=== PATIENT | male | born 1965 | race Caucasian/White ===

== ENCOUNTER 2021-04-07 06:19 | Inpatient (IN) | payer OTHER ==
[2021-04-07] MEDS ORDERED: dilTIAZem HCL 50 MG/10 ML - 10 ML VIAL IVPUSH ONE ×2 (06:38→10:17)
[2021-04-07] MEDS ORDERED: LACTATED RINGERS SOLUTION 1000 ML INFUS.BAG IV ONE ×2 (06:41→07:56)
[2021-04-07] MEDS ORDERED: dilTIAZem HCL 125 MG/25 ML - 25 ML VIAL ONE (06:45)
[2021-04-07 07:02] LABS: HEMATOCRIT 44.2 % (35.4-49); HEMOGLOBIN 15.2 GM/dL (11.7-16.9); MCH 29.6 pg (25.7-33.7); MCHC 34.3 g/dl (32.0-35.9); MEAN CELL VOLUME 86.3 fl (80-96); MEAN PLT VOLUME 9.6 fl (7.5-11.1); PLATELET COUNT 269 10^3/uL (134-434); RBC 5.12 M/mm3 (4.00-5.60); RDW 14.1 % (11.9-15.9); WHITE BLOOD COUNT 18.8 K/mm3 (4.0-10.0)
[2021-04-07] MEDS ORDERED: PIPERACILLIN/TAZOB 3.375 GM 3.375 GM in DEXTROSE 5%-WATER - 50 ML IVPB ONE (07:11)
[2021-04-07] MEDS ORDERED: VANCOMYCIN 1 GM in D5W (PRE-DOCKED) 1,000 MG/250 ML IVPB ONE (07:11)
[2021-04-07 07:12] LABS: ACTIVATED PTT 28.1 SECONDS (25.2-36.5)
[2021-04-07] MEDS ORDERED: VANCOMYCIN 1 GRAM (PRE-DOCKED) 1,000 MG/250 ML BAG IVPB ONE (07:14)
[2021-04-07] MEDS ORDERED: PIPERACILLIN/TAZOB 3.375 GM 3.375 GM/50 ML BAG IVPB ONE ×3 (07:14→19:02)
[2021-04-07 07:21] LABS: CHLORIDE 92 mmol/L (98-107); SODIUM 128 mmol/L (136-145)
[2021-04-07 07:23] LABS: CALCIUM 7.7 mg/dL (8.5-10.1)
[2021-04-07 07:24] LABS: ALBUMIN 2.4 g/dl (3.4-5.0); ANION GAP 15 MMOL/L (8-16); BLOOD UREA NITROGEN 24.6 mg/dL (7-18); CO2 21 mmol/L (21-32); GLUCOSE,RANDOM 269 mg/dL (74-106); MAGNESIUM 2.6 mg/dL (1.8-2.4)
[2021-04-07 07:27] LABS: CREATININE 1.9 mg/dL (0.55-1.3); SGOT/AST 43 U/L (15-37); SGPT/ALT 73 U/L (13-61)
[2021-04-07 07:28] LABS: BILIRUBIN,TOTAL 2.4 mg/dL (0.2-1); TOT PROT 6.5 g/dl (6.4-8.2)
[2021-04-07 07:30] LABS: ALK PHOS 180 U/L (45-117)
[2021-04-07 07:33] LABS: LACTIC ACID 3.3 mmol/L (0.4-2.0)
[2021-04-07 08:17] LABS: PH,URINE 5.5 (5.0-8.0); URINE APPEARANCE TURBID; URINE BILIRUBIN NEGATIVE (NEGATIVE); URINE COLOR YELLOW; URINE GLUCOSE (UA) NEGATIVE (NEGATIVE); URINE KETONE NEGATIVE (NEGATIVE); URINE LEUK ESTERASE 3+ (NEGATIVE); URINE NITRITE NEGATIVE (NEGATIVE); URINE PROTEIN 1+ (NEGATIVE); URINE UROBILINOGEN 0.2 mg/dL (0.2-1.0)
[2021-04-07 08:20] LABS: INR 1.1 (0.83-1.09); PROTHROMBIN TIME (PATIENT) 13.5 SEC (9.7-13.0)
[2021-04-07 08:21] LABS: EPI CELLS 2.6 /uL (0-25.1); URINE BACTERIA 3101.6 /uL (0-1359); URINE RBC 154.3 /uL (0-23.9)
[2021-04-07 10:17] LABS: ANISOCYTOSIS 0; MACROCYTOSIS 0; PLATELET ESTIMATE NORMAL
[2021-04-07] MEDS ORDERED: dilTIAZem HCL 50 MG/10 ML - 10 ML VIAL ONE (10:21)
[2021-04-07] MEDS ORDERED: METOPROLOL TARTRATE 5 MG/5 ML VIAL IVPUSH ONE (11:14)
[2021-04-07] MEDS ORDERED: METOPROLOL TARTRATE 5 MG/5 ML VIAL ONE (11:22)
[2021-04-07] MEDS ORDERED: DIGOXIN IMMUNE FAB 40 MG/4 ML VIAL IVPB ONE ×2 (11:48→11:56)
[2021-04-07] MEDS ORDERED: DIGOXIN 0.5 MG/2 ML AMPUL IVPUSH ONE (12:38)
[2021-04-07] MEDS ORDERED: DIGOXIN 0.5 MG/2 ML AMPUL ONE (12:40)
[2021-04-07] MEDS ORDERED: PIPERACILLIN/TAZOB 3.375 GM 3.375 GM in DEXTROSE 5%-WATER - 50 ML IVPB SCH ×2 (13:15→13:30)
[2021-04-07] MEDS ORDERED: DILTIAZEM INJECTION 125 MG in SODIUM CHLORIDE 100 ML IVPB SCH ×2 (13:30→13:32)
[2021-04-07] MEDS ORDERED: HEPARIN NA (PORCINE) 5,000 UNITS/ML 1ML VIAL ONE ×2 (13:44→18:46)
[2021-04-07] MEDS ORDERED: SODIUM CHLORIDE 1,000 ML IV SCH (13:45)
[2021-04-07] MEDS ORDERED: LACTATED RINGERS SOLUTION 1,000 ML/1,000 ML INFUS.BAG IV SCH (13:45)
[2021-04-07] MEDS ORDERED: HEPARIN NA (PORCINE) 5,000 UNITS/ML 1ML VIAL SQ SCH (14:00)
[2021-04-07] MEDS: PIPERACILLIN/TAZOB 3.375 GM 3.375 GM in DEXTROSE 5%-WATER - 50 ML IVPB SCH ×2 (14:12→19:07)
[2021-04-07] MEDS ORDERED: HEPARIN NA (PORCINE) 5,000 UNITS/ML 1ML VIAL IVPUSH PRN (16:54)
[2021-04-07] MEDS ORDERED: HEPARIN - 25,000 UNIT in SODIUM CHLORIDE 495 ML IV SCH (17:00)
[2021-04-07 17:32] LABS: CREATININE, URINE RANDOM 46.7 mg/dL (30-150)
[2021-04-07] MEDS: INSULIN SLIDING SCALE (NOVOLOG) 1 VIAL SQ SCH ×2 (17:51→23:51)
[2021-04-07 18:12] LABS: VENOUS BASE EXCESS 2.4 mmol/L (-2-2); VENOUS O2 SATURATION 88.1 % (70-80); VENOUS PCO2 30.4 mmHg (38-52); VENOUS PH 7.519 (7.310-7.410)
[2021-04-07] MEDS ORDERED: ESMOLOL 2500 MG/250 ML 2,500,000 MCG/250 ML INFUS.BAG IVPB ONE (19:11)
[2021-04-07] MEDS: ESMOLOL 2500 MG/250 ML 2,500,000 MCG/250 ML INFUS.BAG IVPB SCH ×2 (19:29→22:18)
[2021-04-07] MEDS ORDERED: LACTATED RINGERS SOLUTION 1,000 ML/1,000 ML INFUS.BAG IV STA (20:07)
[2021-04-07 20:50] LABS: OPIATES, URI NEGATIVE (NEGATIVE); PHENCYCLIDINE,URINE NEGATIVE (NEGATIVE)
[2021-04-07 20:51] LABS: METHADONE, UR NEGATIVE (NEGATIVE); URINE BARBITURATES NEGATIVE (NEGATIVE); URINE BENZODIAZEPINES NEGATIVE (NEGATIVE)
[2021-04-07 20:52] LABS: COCAINE, UR NEGATIVE (NEGATIVE); URINE AMPHETAMINES NEGATIVE (NEGATIVE)
[2021-04-07] MEDS: CHLORHEXIDINE GLUCONATE 4% CLEANSER FOR DECOLONIZATION TP SCH (23:51)
[2021-04-07] MEDS: MUPIROCIN 2% TOPICAL OINTMENT FOR DECOLONIZATION NS SCH (23:51)
[2021-04-08 00:42] VITALS: BMI 39.2
[2021-04-08] MEDS: ESMOLOL 2500 MG/250 ML 2,500,000 MCG/250 ML INFUS.BAG IVPB SCH ×2 (02:00→06:00)
[2021-04-08] MEDS ORDERED: PIPERACILLIN/TAZOBACTAM 3.375 GM VIAL IVPB ONE ×3 (02:57→16:52)
[2021-04-08] MEDS ORDERED: DEXTROSE 5%-WATER - 50 ML IVPB ONE ×3 (02:58→16:53)
[2021-04-08] MEDS: HEPARIN NA (PORCINE) 5,000 UNITS/ML 1ML VIAL IVPUSH PRN ×2 (03:02→10:36)
[2021-04-08] MEDS: PIPERACILLIN/TAZOB 3.375 GM 3.375 GM in DEXTROSE 5%-WATER - 50 ML IVPB SCH ×3 (03:03→17:00)
[2021-04-08 06:45] LABS: HEMATOCRIT 39.3 % (35.4-49); HEMOGLOBIN 13.5 GM/dL (11.7-16.9); MCHC 34.3 g/dl (32.0-35.9); MEAN CELL VOLUME 87.7 fl (80-96); MEAN PLT VOLUME 9.3 fl (7.5-11.1); PLATELET COUNT 275 10^3/uL (134-434); RBC 4.48 M/mm3 (4.00-5.60); RDW 14.4 % (11.9-15.9); WHITE BLOOD COUNT 13.5 K/mm3 (4.0-10.0)
[2021-04-08] MEDS: INSULIN SLIDING SCALE (NOVOLOG) 1 VIAL SQ SCH ×4 (06:49→21:50)
[2021-04-08 06:52] LABS: CALCIUM 7.1 mg/dL (8.5-10.1)
[2021-04-08 06:53] LABS: BLOOD UREA NITROGEN 24.2 mg/dL (7-18); MAGNESIUM 2.7 mg/dL (1.8-2.4)
[2021-04-08 06:56] LABS: CREATININE 1.6 mg/dL (0.55-1.3); PHOSPHOROUS 4.3 mg/dL (2.5-4.9)
[2021-04-08 06:57] LABS: BILIRUBIN,TOTAL 1.4 mg/dL (0.2-1)
[2021-04-08 08:58] LABS: ANISOCYTOSIS 0; MACROCYTOSIS 0; PLATELET ESTIMATE NORMAL; TARGET CELLS 1+
[2021-04-08] MEDS: METOPROLOL TARTRATE 25 MG TABLET (FP) PO SCH ×2 (11:30→21:50)
[2021-04-08] MEDS: MUPIROCIN 2% TOPICAL OINTMENT FOR DECOLONIZATION NS SCH ×2 (11:30→21:49)
[2021-04-08] MEDS: AMIODARONE HCL 200 MG TABLET PO SCH ×2 (14:41→21:49)
[2021-04-08] MEDS: SODIUM CHLORIDE 0.45% 1,000 ML IV SCH (14:41)
[2021-04-08] MEDS: HEPARIN NA (PORCINE) 5,000 UNITS/ML 1ML VIAL SQ SCH ×2 (15:15→21:49)
[2021-04-08] MEDS ORDERED: amLODIPine BESYLATE 5 MG TABLET (FP) PO ONE (18:48)
[2021-04-08] MEDS: CHLORHEXIDINE GLUCONATE 4% CLEANSER FOR DECOLONIZATION TP SCH (21:49)
[2021-04-09] MEDS ORDERED: DEXTROSE 5%-WATER - 50 ML IVPB ONE ×3 (00:23→18:39)
[2021-04-09] MEDS ORDERED: PIPERACILLIN/TAZOBACTAM 3.375 GM VIAL IVPB ONE ×3 (00:23→18:39)
[2021-04-09] MEDS: PIPERACILLIN/TAZOB 3.375 GM 3.375 GM in DEXTROSE 5%-WATER - 50 ML IVPB SCH ×3 (01:10→18:52)
[2021-04-09] MEDS: HEPARIN NA (PORCINE) 5,000 UNITS/ML 1ML VIAL SQ SCH ×3 (05:12→21:54)
[2021-04-09] MEDS: INSULIN SLIDING SCALE (NOVOLOG) 1 VIAL SQ SCH ×4 (06:18→21:54)
[2021-04-09 06:45] LABS: HEMATOCRIT 39.4 % (35.4-49); HEMOGLOBIN 13.5 GM/dL (11.7-16.9); MCH 30.4 pg (25.7-33.7); MCHC 34.2 g/dl (32.0-35.9); MEAN PLT VOLUME 9.1 fl (7.5-11.1); PLATELET COUNT 339 10^3/uL (134-434); RBC 4.43 M/mm3 (4.00-5.60); RDW 14.4 % (11.9-15.9); WHITE BLOOD COUNT 13.5 K/mm3 (4.0-10.0)
[2021-04-09 06:47] LABS: HEMATOCRIT 39.4 % (35.4-49); HEMOGLOBIN 13.4 GM/dL (11.7-16.9); MCH 30.4 pg (25.7-33.7); MCHC 33.9 g/dl (32.0-35.9); MEAN CELL VOLUME 89.7 fl (80-96); MEAN PLT VOLUME 9.5 fl (7.5-11.1); PLATELET COUNT 343 10^3/uL (134-434); RDW 14.5 % (11.9-15.9); WHITE BLOOD COUNT 14.1 K/mm3 (4.0-10.0)
[2021-04-09 07:08] LABS: CALCIUM 7.4 mg/dL (8.5-10.1)
[2021-04-09 07:09] LABS: ALBUMIN 2.2 g/dl (3.4-5.0); BLOOD UREA NITROGEN 21.8 mg/dL (7-18); MAGNESIUM 2.9 mg/dL (1.8-2.4)
[2021-04-09 07:12] LABS: CREATININE 1.3 mg/dL (0.55-1.3); PHOSPHOROUS 3.9 mg/dL (2.5-4.9)
[2021-04-09 07:13] LABS: BILIRUBIN,TOTAL 1.2 mg/dL (0.2-1); TOT PROT 6.5 g/dl (6.4-8.2)
[2021-04-09] MEDS: METOPROLOL TARTRATE 25 MG TABLET (FP) PO SCH ×2 (09:06→21:54)
[2021-04-09] MEDS: AMIODARONE HCL 200 MG TABLET PO SCH ×2 (09:06→21:53)
[2021-04-09] MEDS: amLODIPine BESYLATE 5 MG TABLET (FP) PO SCH (09:07)
[2021-04-09] MEDS: MUPIROCIN 2% TOPICAL OINTMENT FOR DECOLONIZATION NS SCH ×2 (09:18→21:53)
[2021-04-09 09:33] LABS: ANISOCYTOSIS 0; MACROCYTOSIS 0; PLATELET ESTIMATE NORMAL
[2021-04-09] MEDS: SODIUM CHLORIDE 0.45% 1,000 ML IV SCH (18:54)
[2021-04-09] MEDS: CHLORHEXIDINE GLUCONATE 4% CLEANSER FOR DECOLONIZATION TP SCH (21:54)
[2021-04-10] MEDS ORDERED: DEXTROSE 5%-WATER - 50 ML IVPB ONE ×3 (01:11→17:35)
[2021-04-10] MEDS ORDERED: PIPERACILLIN/TAZOBACTAM 3.375 GM VIAL IVPB ONE ×3 (01:11→17:35)
[2021-04-10] MEDS: PIPERACILLIN/TAZOB 3.375 GM 3.375 GM in DEXTROSE 5%-WATER - 50 ML IVPB SCH ×3 (01:14→17:45)
[2021-04-10] MEDS: INSULIN SLIDING SCALE (NOVOLOG) 1 VIAL SQ SCH ×4 (06:27→21:17)
[2021-04-10] MEDS: SODIUM CHLORIDE 0.45% 1,000 ML IV SCH (08:32)
[2021-04-10 08:50] LABS: HEMATOCRIT 38.4 % (35.4-49); HEMOGLOBIN 13.2 GM/dL (11.7-16.9); MCH 30.2 pg (25.7-33.7); MCHC 34.5 g/dl (32.0-35.9); MEAN CELL VOLUME 87.6 fl (80-96); MEAN PLT VOLUME 8.2 fl (7.5-11.1); PLATELET COUNT 389 10^3/uL (134-434); RBC 4.39 M/mm3 (4.00-5.60); RDW 14.4 % (11.9-15.9); WHITE BLOOD COUNT 12.9 K/mm3 (4.0-10.0)
[2021-04-10 09:06] LABS: ALBUMIN 2.4 g/dl (3.4-5.0); CALCIUM 7.8 mg/dL (8.5-10.1)
[2021-04-10 09:07] LABS: BLOOD UREA NITROGEN 17.8 mg/dL (7-18); MAGNESIUM 2.6 mg/dL (1.8-2.4)
[2021-04-10 09:09] LABS: PHOSPHOROUS 4.2 mg/dL (2.5-4.9)
[2021-04-10 09:10] LABS: CREATININE 1.4 mg/dL (0.55-1.3)
[2021-04-10 09:11] LABS: BILIRUBIN,TOTAL 0.9 mg/dL (0.2-1); TOT PROT 6.7 g/dl (6.4-8.2)
[2021-04-10] MEDS: amLODIPine BESYLATE 5 MG TABLET (FP) PO SCH (10:14)
[2021-04-10] MEDS: METOPROLOL TARTRATE 25 MG TABLET (FP) PO SCH ×2 (10:14→21:17)
[2021-04-10] MEDS: AMIODARONE HCL 200 MG TABLET PO SCH ×2 (10:14→21:17)
[2021-04-10] MEDS ORDERED: IOHEXOL 300 MG/ML INFUS..BTL IV ONE (10:15)
[2021-04-10] MEDS ORDERED: MIDAZOLAM HCL 2 MG/2 ML SINGLE DOSE VIAL ONE ×2 (10:28→10:54)
[2021-04-10] MEDS ORDERED: PROPOFOL 20 ML ONE (10:28)
[2021-04-10] MEDS: MUPIROCIN 2% TOPICAL OINTMENT FOR DECOLONIZATION NS SCH (10:30)
[2021-04-10] MEDS ORDERED: ONDANSETRON 4 MG/2 ML VIAL IVPUSH PRN ×2 (11:43→12:14)
[2021-04-10] MEDS ORDERED: LACTATED RINGERS SOLUTION 1,000 ML IV SCH ×3 (11:45→13:30)
[2021-04-10] MEDS ORDERED: SODIUM CHLORIDE 0.45% 1,000 ML IV SCH ×2 (12:02→12:14)
[2021-04-10] MEDS ORDERED: HEPARIN NA (PORCINE) 5,000 UNITS/ML 1ML VIAL SQ SCH ×2 (14:00)
[2021-04-10] MEDS ORDERED: INSULIN SLIDING SCALE (NOVOLOG) 1 VIAL SQ SCH (16:30)
[2021-04-10] MEDS ORDERED: HEPARIN NA (PORCINE) 5,000 UNITS/ML 1ML VIAL IVPUSH PRN ×2 (17:21)
[2021-04-10] MEDS ORDERED: PIPERACILLIN/TAZOB 3.375 GM 3.375 GM in DEXTROSE 5%-WATER - 50 ML IVPB SCH (18:00)
[2021-04-10] MEDS: HEPARIN - 25,000 UNIT in SODIUM CHLORIDE 495 ML IV SCH (18:13)
[2021-04-10] MEDS ORDERED: INSULIN (NOVOLOG) ASPART 100 UNITS/ML 10ML VIAL ONE (21:10)
[2021-04-10] MEDS ORDERED: METOPROLOL TARTRATE 25 MG TABLET (FP) PO SCH (22:00)
[2021-04-10] MEDS ORDERED: AMIODARONE HCL 200 MG TABLET PO SCH ×2 (22:00)
[2021-04-11] MEDS ORDERED: PIPERACILLIN/TAZOBACTAM 3.375 GM VIAL IVPB ONE ×3 (02:03→16:52)
[2021-04-11] MEDS ORDERED: DEXTROSE 5%-WATER - 50 ML IVPB ONE ×3 (02:03→16:52)
[2021-04-11] MEDS: PIPERACILLIN/TAZOB 3.375 GM 3.375 GM in DEXTROSE 5%-WATER - 50 ML IVPB SCH ×3 (02:15→17:24)
[2021-04-11] MEDS ORDERED: ACETAMINOPHEN 1000 MG/100 ML VIAL (NON FORMULARY) IVPB ONE (02:18)
[2021-04-11] MEDS: INSULIN SLIDING SCALE (NOVOLOG) 1 VIAL SQ SCH ×4 (06:25→22:35)
[2021-04-11 09:27] LABS: HEMATOCRIT 39.9 % (35.4-49); HEMOGLOBIN 13.7 GM/dL (11.7-16.9); MCH 30.3 pg (25.7-33.7); MCHC 34.3 g/dl (32.0-35.9); MEAN CELL VOLUME 88.4 fl (80-96); MEAN PLT VOLUME 8.5 fl (7.5-11.1); PLATELET COUNT 403 10^3/uL (134-434); RBC 4.51 M/mm3 (4.00-5.60); RDW 14.4 % (11.9-15.9); WHITE BLOOD COUNT 12.4 K/mm3 (4.0-10.0)
[2021-04-11] MEDS: amLODIPine BESYLATE 5 MG TABLET (FP) PO SCH (09:50)
[2021-04-11] MEDS: HEPARIN - 25,000 UNIT in SODIUM CHLORIDE 495 ML IV SCH (09:50)
[2021-04-11] MEDS: METOPROLOL TARTRATE 25 MG TABLET (FP) PO SCH ×2 (09:50→22:27)
[2021-04-11] MEDS: AMIODARONE HCL 200 MG TABLET PO SCH ×2 (09:50→22:27)
[2021-04-11 11:03] LABS: BLOOD UREA NITROGEN 14.3 mg/dL (7-18); CALCIUM 7.8 mg/dL (8.5-10.1); CHLORIDE 105 mmol/L (98-107); CO2 28 mmol/L (21-32); CREATININE 1.3 mg/dL (0.55-1.3); GLUCOSE,RANDOM 96 mg/dL (74-106); SODIUM 139 mmol/L (136-145)
[2021-04-11 11:04] LABS: ALBUMIN 2.4 g/dl (3.4-5.0); ALK PHOS 141 U/L (45-117); SGOT/AST 31 U/L (15-37); SGPT/ALT 81 U/L (13-61); TOT PROT 6.7 g/dl (6.4-8.2)
[2021-04-11] MEDS: HEPARIN NA (PORCINE) 5,000 UNITS/ML 1ML VIAL SQ SCH (22:29)
[2021-04-12] MEDS ORDERED: PIPERACILLIN/TAZOBACTAM 3.375 GM VIAL IVPB ONE ×3 (03:09→16:19)
[2021-04-12] MEDS ORDERED: DEXTROSE 5%-WATER - 50 ML IVPB ONE ×3 (03:10→16:19)
[2021-04-12] MEDS: PIPERACILLIN/TAZOB 3.375 GM 3.375 GM in DEXTROSE 5%-WATER - 50 ML IVPB SCH ×3 (03:13→17:12)
[2021-04-12] MEDS: HEPARIN NA (PORCINE) 5,000 UNITS/ML 1ML VIAL SQ SCH ×3 (06:44→22:52)
[2021-04-12] MEDS: INSULIN SLIDING SCALE (NOVOLOG) 1 VIAL SQ SCH ×4 (06:45→22:53)
[2021-04-12 07:05] LABS: HEMATOCRIT 40.8 % (35.4-49); MCH 30.4 pg (25.7-33.7); MCHC 34.2 g/dl (32.0-35.9); MEAN CELL VOLUME 88.9 fl (80-96); RBC 4.59 M/mm3 (4.00-5.60); WHITE BLOOD COUNT 13.1 K/mm3 (4.0-10.0)
[2021-04-12 07:07] LABS: RDW 14.5 % (11.9-15.9)
[2021-04-12 07:08] LABS: MEAN PLT VOLUME 8.1 fl (7.5-11.1); PLATELET COUNT 396 10^3/uL (134-434)
[2021-04-12] MEDS ORDERED: PT OWN MED DRAWER 7, Y5N ONE (09:07)
[2021-04-12] MEDS: amLODIPine BESYLATE 5 MG TABLET (FP) PO SCH (10:10)
[2021-04-12] MEDS: AMIODARONE HCL 200 MG TABLET PO SCH ×2 (10:10→22:52)
[2021-04-12] MEDS: METOPROLOL TARTRATE 25 MG TABLET (FP) PO SCH ×2 (10:10→22:52)
[2021-04-13] MEDS ORDERED: PIPERACILLIN/TAZOBACTAM 3.375 GM VIAL IVPB ONE ×3 (02:04→17:36)
[2021-04-13] MEDS ORDERED: DEXTROSE 5%-WATER - 50 ML IVPB ONE ×3 (02:04→17:36)
[2021-04-13] MEDS: PIPERACILLIN/TAZOB 3.375 GM 3.375 GM in DEXTROSE 5%-WATER - 50 ML IVPB SCH ×3 (02:48→18:20)
[2021-04-13] MEDS: HEPARIN NA (PORCINE) 5,000 UNITS/ML 1ML VIAL SQ SCH (06:23)
[2021-04-13] MEDS: INSULIN SLIDING SCALE (NOVOLOG) 1 VIAL SQ SCH ×3 (06:24→21:01)
[2021-04-13 07:49] LABS: HEMATOCRIT 43.7 % (35.4-49); HEMOGLOBIN 14.9 GM/dL (11.7-16.9); MCH 30.2 pg (25.7-33.7); MEAN CELL VOLUME 88.9 fl (80-96); MEAN PLT VOLUME 8.6 fl (7.5-11.1); PLATELET COUNT 447 10^3/uL (134-434); RBC 4.92 M/mm3 (4.00-5.60); RDW 14.6 % (11.9-15.9); WHITE BLOOD COUNT 15.3 K/mm3 (4.0-10.0)
[2021-04-13] MEDS ORDERED: MAGNESIUM SULF 50% (8.12 MEQ/2 ML-1 GM VIAL) IVPB ONE (10:22)
[2021-04-13] MEDS: amLODIPine BESYLATE 5 MG TABLET (FP) PO SCH (10:34)
[2021-04-13] MEDS: AMIODARONE HCL 200 MG TABLET PO SCH ×2 (10:34→22:32)
[2021-04-13] MEDS: METOPROLOL TARTRATE 25 MG TABLET (FP) PO SCH ×2 (10:34→22:40)
[2021-04-13] MEDS ORDERED: fentaNYL CITRATE 250 MCG/5 ML VIAL ONE (12:25)
[2021-04-13] MEDS ORDERED: SUCCINYLCHOLINE CHLORIDE 200 MG/10 ML SYRINGE ONE (12:25)
[2021-04-13] MEDS ORDERED: PROPOFOL 20 ML ONE (12:25)
[2021-04-13] MEDS ORDERED: MIDAZOLAM HCL 2 MG/2 ML SINGLE DOSE VIAL ONE (12:26)
[2021-04-13] MEDS ORDERED: ROCURONIUM BROMIDE 50 MG/5 ML SYRINGE ONE ×3 (12:54→15:14)
[2021-04-13] MEDS ORDERED: HYDROmorphone HCl 2 MG/ML VIAL ONE ×2 (13:22→16:34)
[2021-04-13] MEDS ORDERED: KETAMINE HCL 200 MG/20 ML VIAL ONE (13:31)
[2021-04-13] MEDS ORDERED: NEOSTIGMINE METHYLSULFATE 0.5 MG/ML - 10 ML MDV ONE (15:10)
[2021-04-13] MEDS ORDERED: HYDROmorphone *PCA* 10MG/50ML DISP.SYRIN ONE (16:16)
[2021-04-13] MEDS ORDERED: ONDANSETRON 4 MG/2 ML VIAL IVPUSH PRN ×2 (16:19→16:42)
[2021-04-13] MEDS ORDERED: PROMETHAZINE HCL 25 MG/1 ML VIAL IVPUSH PRN (16:19)
[2021-04-13] MEDS: HYDROmorphone *PCA* 10MG/50ML DISP.SYRIN PCA SCH (16:25)
[2021-04-13] MEDS: LACTATED RINGERS SOLUTION 1,000 ML IV SCH (16:30)
[2021-04-13] MEDS: HYDROmorphone HCl 2 MG/ML VIAL IVPUSH PRN ×4 (16:37→16:55)
[2021-04-13] MEDS ORDERED: LORazepam 2 MG/ML SDV VIAL ONE (17:30)
[2021-04-13] MEDS ORDERED: LORazepam 2 MG/ML SDV VIAL IVPUSH ONE (17:30)
[2021-04-14] MEDS: LACTATED RINGERS SOLUTION 1,000 ML IV SCH ×2 (01:10→17:15)
[2021-04-14] MEDS ORDERED: PIPERACILLIN/TAZOBACTAM 3.375 GM VIAL IVPB ONE ×3 (04:41→17:08)
[2021-04-14] MEDS: PIPERACILLIN/TAZOB 3.375 GM 3.375 GM in DEXTROSE 5%-WATER - 50 ML IVPB SCH ×3 (04:52→17:14)
[2021-04-14] MEDS: HYDROmorphone *PCA* 10MG/50ML DISP.SYRIN PCA SCH ×2 (06:54→17:59)
[2021-04-14] MEDS: INSULIN SLIDING SCALE (NOVOLOG) 1 VIAL SQ SCH ×4 (07:11→23:11)
[2021-04-14 08:27] LABS: BASO % 0.2 % (0-2.0); EOS % 0.8 % (0-4.5); HEMATOCRIT 41.1 % (35.4-49); HEMOGLOBIN 13.7 GM/dL (11.7-16.9); LYMPH % 10.2 % (8-40); MCH 29.8 pg (25.7-33.7); MCHC 33.4 g/dl (32.0-35.9); MEAN CELL VOLUME 89.1 fl (80-96); MEAN PLT VOLUME 8.3 fl (7.5-11.1); MONO % 4.1 % (3.8-10.2); NEUT % 84.7 % (42.8-82.8); PLATELET COUNT 396 10^3/uL (134-434); RDW 14.6 % (11.9-15.9); WHITE BLOOD COUNT 15.7 K/mm3 (4.0-10.0)
[2021-04-14 08:36] LABS: ALBUMIN 2.7 g/dl (3.4-5.0); CALCIUM 8.6 mg/dL (8.5-10.1)
[2021-04-14 08:37] LABS: MAGNESIUM 2.4 mg/dL (1.8-2.4)
[2021-04-14 08:39] LABS: CREATININE 1.8 mg/dL (0.55-1.3)
[2021-04-14 08:40] LABS: PHOSPHOROUS 4.9 mg/dL (2.5-4.9)
[2021-04-14 08:41] LABS: BILIRUBIN,TOTAL 0.9 mg/dL (0.2-1)
[2021-04-14 08:43] LABS: BLOOD UREA NITROGEN 20.3 mg/dL (7-18)
[2021-04-14] MEDS ORDERED: DEXTROSE 5%-WATER - 50 ML IVPB ONE ×2 (08:54→17:08)
[2021-04-14] MEDS: AMIODARONE HCL 200 MG TABLET PO SCH ×3 (09:01→23:00)
[2021-04-14] MEDS: amLODIPine BESYLATE 5 MG TABLET (FP) PO SCH ×2 (09:02→09:13)
[2021-04-14] MEDS: METOPROLOL TARTRATE 25 MG TABLET (FP) PO SCH ×2 (09:02→09:13)
[2021-04-14] MEDS: FAMOTIDINE 20 MG/50 ML IVPB 20 MG/50 ML MG IVPB SCH ×2 (09:03→23:00)
[2021-04-14] MEDS ORDERED: FAMOTIDINE 20 MG/50 ML IVPB 20 MG/50 ML MG IVPB SCH (10:00)
[2021-04-14] MEDS: METOPROLOL TARTRATE 5 MG/5 ML VIAL IVPUSH SCH ×2 (17:13→23:00)
[2021-04-14] MEDS: HEPARIN NA (PORCINE) 5,000 UNITS/ML 1ML VIAL SQ SCH (23:00)
[2021-04-15] MEDS ORDERED: PIPERACILLIN/TAZOBACTAM 3.375 GM VIAL IVPB ONE ×3 (02:00→14:41)
[2021-04-15] MEDS ORDERED: DEXTROSE 5%-WATER - 50 ML IVPB ONE ×3 (02:01→14:41)
[2021-04-15] MEDS: PIPERACILLIN/TAZOB 3.375 GM 3.375 GM in DEXTROSE 5%-WATER - 50 ML IVPB SCH ×2 (03:19→10:12)
[2021-04-15 07:57] LABS: ALBUMIN 2.6 g/dl (3.4-5.0); BLOOD UREA NITROGEN 16.8 mg/dL (7-18)
[2021-04-15 07:58] LABS: BILIRUBIN,TOTAL 0.9 mg/dL (0.2-1)
[2021-04-15 07:59] LABS: CALCIUM 8.5 mg/dL (8.5-10.1); TOT PROT 6.7 g/dl (6.4-8.2)
[2021-04-15 08:00] LABS: MAGNESIUM 2.1 mg/dL (1.8-2.4)
[2021-04-15] MEDS: INSULIN SLIDING SCALE (NOVOLOG) 1 VIAL SQ SCH ×4 (08:00→21:04)
[2021-04-15 08:01] LABS: CREATININE 1.5 mg/dL (0.55-1.3); PHOSPHOROUS 3.8 mg/dL (2.5-4.9)
[2021-04-15 08:05] LABS: BASO % 0.6 % (0-2.0); EOS % 1.2 % (0-4.5); HEMATOCRIT 40.1 % (35.4-49); HEMOGLOBIN 13.4 GM/dL (11.7-16.9); LYMPH % 9.9 % (8-40); MCH 30.4 pg (25.7-33.7); MCHC 33.4 g/dl (32.0-35.9); MEAN CELL VOLUME 90.8 fl (80-96); MEAN PLT VOLUME 8.7 fl (7.5-11.1); MONO % 5.4 % (3.8-10.2); NEUT % 82.9 % (42.8-82.8); PLATELET COUNT 391 10^3/uL (134-434); RBC 4.41 M/mm3 (4.00-5.60); RDW 14.9 % (11.9-15.9); WHITE BLOOD COUNT 14.1 K/mm3 (4.0-10.0)
[2021-04-15] MEDS: FAMOTIDINE 20 MG/50 ML IVPB 20 MG/50 ML MG IVPB SCH ×2 (10:12→21:04)
[2021-04-15] MEDS: AMIODARONE HCL 200 MG TABLET PO SCH ×2 (10:12→21:06)
[2021-04-15] MEDS: amLODIPine BESYLATE 5 MG TABLET (FP) PO SCH (10:12)
[2021-04-15] MEDS ORDERED: morphine SULFATE 4 MG/ML VIAL IVPUSH PRN ×2 (11:16→17:45)
[2021-04-15] MEDS ORDERED: ACETAMINOPHEN 1000 MG/100 ML VIAL (NON FORMULARY) IVPB PRN (11:17)
[2021-04-15] MEDS: METOPROLOL TARTRATE 5 MG/5 ML VIAL IVPUSH SCH ×3 (11:21→21:05)
[2021-04-15] MEDS: METHYL SALICYLATE/MENTHOL OINT 30 GM TUBE TP SCH (11:22)
[2021-04-15] MEDS ORDERED: PT OWN MED DRAWER 7, Y5N ONE (11:27)
[2021-04-15] MEDS ORDERED: CEFEPIME 2 GM in DEXTROSE 5%-WATER 2 GM/100 ML BAG IVPB SCH ×2 (14:45→18:00)
[2021-04-15] MEDS: HEPARIN NA (PORCINE) 5,000 UNITS/ML 1ML VIAL SQ SCH ×2 (15:22→21:08)
[2021-04-15] MEDS: LACTATED RINGERS SOLUTION 1,000 ML IV SCH (16:00)
[2021-04-15] MEDS: CEFEPIME 2 GM in DEXTROSE 5%-WATER 2 GM/100 ML BAG IVPB SCH ×2 (16:26→17:25)
[2021-04-15] MEDS ORDERED: PCA PUMP NR ONE (16:29)
[2021-04-15] MEDS ORDERED: METOPROLOL TARTRATE 5 MG/5 ML VIAL IVPUSH SCH (18:00)
[2021-04-15] MEDS ORDERED: LORazepam 2 MG/ML SDV VIAL IVPUSH ONE (18:30)
[2021-04-15] MEDS: LIDOCAINE 5% TOPICAL PATCH TP SCH (21:08)
[2021-04-15] MEDS: LIDOCAINE PATCH REMOVAL MC SCH (21:09)
[2021-04-16 01:20] LABS: HEMATOCRIT 38.6 % (35.4-49); HEMOGLOBIN 13.1 GM/dL (11.7-16.9); MCH 29.7 pg (25.7-33.7); MCHC 33.9 g/dl (32.0-35.9); MEAN CELL VOLUME 87.8 fl (80-96); MEAN PLT VOLUME 8.4 fl (7.5-11.1); PLATELET COUNT 431 10^3/uL (134-434); RDW 14.7 % (11.9-15.9); WHITE BLOOD COUNT 21.1 K/mm3 (4.0-10.0)
[2021-04-16 01:29] LABS: INR 1.14 (0.83-1.09)
[2021-04-16 01:31] LABS: ACTIVATED PTT 26.6 SECONDS (25.2-36.5)
[2021-04-16] MEDS: CEFEPIME 2 GM in DEXTROSE 5%-WATER 2 GM/100 ML BAG IVPB SCH ×2 (01:38→09:34)
[2021-04-16] MEDS: METOPROLOL TARTRATE 5 MG/5 ML VIAL IVPUSH SCH ×6 (03:26→22:16)
[2021-04-16] MEDS: INSULIN SLIDING SCALE (NOVOLOG) 1 VIAL SQ SCH ×4 (06:47→22:17)
[2021-04-16 06:53] LABS: BASO % 0.7 % (0-2.0); EOS % 0.5 % (0-4.5); HEMATOCRIT 34.1 % (35.4-49); HEMOGLOBIN 11.3 GM/dL (11.7-16.9); LYMPH % 9.9 % (8-40); MCHC 33.2 g/dl (32.0-35.9); MEAN CELL VOLUME 90.3 fl (80-96); MEAN PLT VOLUME 8.9 fl (7.5-11.1); MONO % 6.3 % (3.8-10.2); NEUT % 82.6 % (42.8-82.8); PLATELET COUNT 403 10^3/uL (134-434); RBC 3.77 M/mm3 (4.00-5.60); RDW 14.8 % (11.9-15.9); WHITE BLOOD COUNT 18.3 K/mm3 (4.0-10.0)
[2021-04-16] MEDS: HEPARIN NA (PORCINE) 5,000 UNITS/ML 1ML VIAL SQ SCH ×4 (06:53→22:01)
[2021-04-16 07:16] LABS: ALBUMIN 2.3 g/dl (3.4-5.0); CALCIUM 8.4 mg/dL (8.5-10.1)
[2021-04-16 07:17] LABS: BLOOD UREA NITROGEN 18.6 mg/dL (7-18)
[2021-04-16 07:20] LABS: BILIRUBIN,TOTAL 1.4 mg/dL (0.2-1); CREATININE 1.3 mg/dL (0.55-1.3); TOT PROT 6.2 g/dl (6.4-8.2)
[2021-04-16] MEDS: METHYL SALICYLATE/MENTHOL OINT 30 GM TUBE TP SCH (09:33)
[2021-04-16] MEDS: AMIODARONE HCL 200 MG TABLET PO SCH ×2 (09:34→22:01)
[2021-04-16] MEDS: LIDOCAINE 5% TOPICAL PATCH TP SCH ×2 (09:34→18:05)
[2021-04-16] MEDS: amLODIPine BESYLATE 5 MG TABLET (FP) PO SCH (09:36)
[2021-04-16] MEDS: FAMOTIDINE 20 MG/50 ML IVPB 20 MG/50 ML MG IVPB SCH ×2 (09:37→22:02)
[2021-04-16] MEDS: LACTATED RINGERS SOLUTION 1,000 ML IV SCH (11:19)
[2021-04-16] MEDS ORDERED: cefTRIAXone SODIUM 1 GM VIAL ONE (12:55)
[2021-04-16] MEDS: CEFTRIAXONE 1 GM in DEXTROSE 5%-WATER - 50 ML IVPB SCH (13:22)
[2021-04-16] MEDS ORDERED: LACTATED RINGERS SOLUTION 1,000 ML IV SCH ×2 (16:01→16:34)
[2021-04-16] MEDS ORDERED: AMINO ACIDS 4.25%/D5W 1,000 ML IV SCH (16:45)
[2021-04-16] MEDS ORDERED: PT OWN MED DRAWER 7, Y5N ONE (21:29)
[2021-04-16] MEDS ORDERED: FAT EMULSION/OLIVE/SOY (CLINOLIPID) 250 ML EMULSION IV ONE (22:00)
[2021-04-16] MEDS: LIDOCAINE PATCH REMOVAL MC SCH (22:01)
[2021-04-17] MEDS: METOPROLOL TARTRATE 5 MG/5 ML VIAL IVPUSH SCH ×3 (02:06→09:34)
[2021-04-17] MEDS: HEPARIN NA (PORCINE) 5,000 UNITS/ML 1ML VIAL SQ SCH ×3 (06:23→21:53)
[2021-04-17] MEDS: INSULIN SLIDING SCALE (NOVOLOG) 1 VIAL SQ SCH ×4 (06:24→22:14)
[2021-04-17 07:38] LABS: BASO % 1.1 % (0-2.0); EOS % 2.5 % (0-4.5); HEMATOCRIT 30.9 % (35.4-49); HEMOGLOBIN 10.6 GM/dL (11.7-16.9); LYMPH % 15.4 % (8-40); MCH 30.3 pg (25.7-33.7); MCHC 34.2 g/dl (32.0-35.9); MEAN CELL VOLUME 88.6 fl (80-96); MEAN PLT VOLUME 8.9 fl (7.5-11.1); MONO % 7.6 % (3.8-10.2); NEUT % 73.4 % (42.8-82.8); PLATELET COUNT 417 10^3/uL (134-434); RBC 3.49 M/mm3 (4.00-5.60); RDW 14.7 % (11.9-15.9); WHITE BLOOD COUNT 13.9 K/mm3 (4.0-10.0)
[2021-04-17 08:03] LABS: ALBUMIN 2.3 g/dl (3.4-5.0); CALCIUM 8.2 mg/dL (8.5-10.1)
[2021-04-17 08:04] LABS: BLOOD UREA NITROGEN 22.4 mg/dL (7-18); CHOLESTEROL 148 mg/dL (50-200); MAGNESIUM 2.2 mg/dL (1.8-2.4)
[2021-04-17 08:05] LABS: LDL CHOLESTEROL (ONLY SJRH) 79 mg/dL (5-100)
[2021-04-17 08:06] LABS: TRIGLYCERIDES 174 mg/dL (0-150)
[2021-04-17 08:07] LABS: CREATININE 1.4 mg/dL (0.55-1.3); PHOSPHOROUS 3.2 mg/dL (2.5-4.9)
[2021-04-17 08:08] LABS: BILIRUBIN,TOTAL 0.6 mg/dL (0.2-1); TOT PROT 6.3 g/dl (6.4-8.2)
[2021-04-17 08:09] LABS: HDL CHOLESTEROL 29 mg/dL (40-60)
[2021-04-17] MEDS ORDERED: DEXTROSE 5%-WATER - 50 ML IVPB ONE (09:32)
[2021-04-17] MEDS ORDERED: cefTRIAXone SODIUM 1 GM VIAL ONE (09:32)
[2021-04-17] MEDS: amLODIPine BESYLATE 5 MG TABLET (FP) PO SCH (09:34)
[2021-04-17] MEDS: CEFTRIAXONE 1 GM in DEXTROSE 5%-WATER - 50 ML IVPB SCH (09:41)
[2021-04-17] MEDS: LIDOCAINE 5% TOPICAL PATCH TP SCH (09:41)
[2021-04-17] MEDS: FAMOTIDINE 20 MG/50 ML IVPB 20 MG/50 ML MG IVPB SCH ×2 (09:42→21:54)
[2021-04-17] MEDS: AMIODARONE HCL 200 MG TABLET PO SCH ×2 (12:00→21:53)
[2021-04-17] MEDS: METHYL SALICYLATE/MENTHOL OINT 30 GM TUBE TP SCH (12:00)
[2021-04-17 16:36] LABS: CALCIUM 8.1 mg/dL (8.5-10.1)
[2021-04-17 16:37] LABS: BLOOD UREA NITROGEN 23.2 mg/dL (7-18)
[2021-04-17 16:40] LABS: CREATININE 1.5 mg/dL (0.55-1.3)
[2021-04-17] MEDS: LIDOCAINE PATCH REMOVAL MC SCH (22:14)
[2021-04-18] MEDS ORDERED: ACETAMINOPHEN 1000 MG/100 ML VIAL (NON FORMULARY) IVPB ONE (06:05)
[2021-04-18] MEDS: HEPARIN NA (PORCINE) 5,000 UNITS/ML 1ML VIAL SQ SCH ×3 (06:13→21:54)
[2021-04-18] MEDS: INSULIN SLIDING SCALE (NOVOLOG) 1 VIAL SQ SCH ×4 (06:14→22:11)
[2021-04-18] MEDS ORDERED: PT OWN MED DRAWER 7, Y5N ONE (08:56)
[2021-04-18] MEDS ORDERED: cefTRIAXone SODIUM 1 GM VIAL ONE (08:56)
[2021-04-18] MEDS ORDERED: DEXTROSE 5%-WATER - 50 ML IVPB ONE (08:56)
[2021-04-18] MEDS: LIDOCAINE 5% TOPICAL PATCH TP SCH (08:59)
[2021-04-18] MEDS: amLODIPine BESYLATE 5 MG TABLET (FP) PO SCH (09:01)
[2021-04-18] MEDS: AMIODARONE HCL 200 MG TABLET PO SCH ×2 (09:02→21:54)
[2021-04-18] MEDS: FAMOTIDINE 20 MG/50 ML IVPB 20 MG/50 ML MG IVPB SCH ×2 (09:05→21:56)
[2021-04-18] MEDS: CEFTRIAXONE 1 GM in DEXTROSE 5%-WATER - 50 ML IVPB SCH (09:06)
[2021-04-18] MEDS: METHYL SALICYLATE/MENTHOL OINT 30 GM TUBE TP SCH (09:06)
[2021-04-18 09:55] LABS: EOS % 2.6 % (0-4.5); HEMATOCRIT 31.8 % (35.4-49); HEMOGLOBIN 11.1 GM/dL (11.7-16.9); LYMPH % 15.5 % (8-40); MCH 30.5 pg (25.7-33.7); MCHC 34.9 g/dl (32.0-35.9); MEAN CELL VOLUME 87.6 fl (80-96); MEAN PLT VOLUME 8.7 fl (7.5-11.1); MONO % 7.2 % (3.8-10.2); NEUT % 73.7 % (42.8-82.8); PLATELET COUNT 470 10^3/uL (134-434); RBC 3.63 M/mm3 (4.00-5.60); RDW 14.6 % (11.9-15.9); WHITE BLOOD COUNT 12.4 K/mm3 (4.0-10.0)
[2021-04-18 10:31] LABS: MAGNESIUM 1.9 mg/dL (1.8-2.4)
[2021-04-18 10:35] LABS: PHOSPHOROUS 3.1 mg/dL (2.5-4.9)
[2021-04-18] MEDS ORDERED: INSULIN (NOVOLOG) ASPART 100 UNITS/ML 10ML VIAL ONE (11:16)
[2021-04-18 15:38] LABS: CALCIUM 7.6 mg/dL (8.5-10.1)
[2021-04-18 15:39] LABS: BLOOD UREA NITROGEN 18.8 mg/dL (7-18)
[2021-04-18 15:42] LABS: CREATININE 1.3 mg/dL (0.55-1.3)
[2021-04-18] MEDS: LIDOCAINE PATCH REMOVAL MC SCH (22:10)
[2021-04-19] MEDS ORDERED: ACETAMINOPHEN 1000 MG/100 ML VIAL (NON FORMULARY) IVPB ONE (01:10)
[2021-04-19] MEDS ORDERED: MELATONIN 5 MG TABLETS PO ONE (01:10)
[2021-04-19] MEDS: HEPARIN NA (PORCINE) 5,000 UNITS/ML 1ML VIAL SQ SCH ×3 (05:39→21:11)
[2021-04-19] MEDS: INSULIN SLIDING SCALE (NOVOLOG) 1 VIAL SQ SCH ×4 (07:00→21:57)
[2021-04-19 08:15] LABS: BASO % 1.3 % (0-2.0); EOS % 2.7 % (0-4.5); HEMATOCRIT 31.4 % (35.4-49); HEMOGLOBIN 10.7 GM/dL (11.7-16.9); LYMPH % 17.9 % (8-40); MCH 30.2 pg (25.7-33.7); MCHC 33.9 g/dl (32.0-35.9); MEAN CELL VOLUME 89.1 fl (80-96); MEAN PLT VOLUME 9.1 fl (7.5-11.1); MONO % 8.5 % (3.8-10.2); NEUT % 69.6 % (42.8-82.8); PLATELET COUNT 484 10^3/uL (134-434); RBC 3.53 M/mm3 (4.00-5.60); RDW 14.6 % (11.9-15.9); WHITE BLOOD COUNT 12.8 K/mm3 (4.0-10.0)
[2021-04-19 08:31] LABS: MAGNESIUM 1.9 mg/dL (1.8-2.4)
[2021-04-19] MEDS ORDERED: cefTRIAXone SODIUM 1 GM VIAL ONE (08:42)
[2021-04-19] MEDS ORDERED: PT OWN MED DRAWER 7, Y5N ONE (08:42)
[2021-04-19] MEDS ORDERED: DEXTROSE 5%-WATER - 50 ML IVPB ONE (08:42)
[2021-04-19] MEDS: AMIODARONE HCL 200 MG TABLET PO SCH ×2 (09:32→21:11)
[2021-04-19] MEDS: METHYL SALICYLATE/MENTHOL OINT 30 GM TUBE TP SCH (09:32)
[2021-04-19] MEDS: amLODIPine BESYLATE 5 MG TABLET (FP) PO SCH (09:32)
[2021-04-19] MEDS: LIDOCAINE 5% TOPICAL PATCH TP SCH (09:33)
[2021-04-19] MEDS: FAMOTIDINE 20 MG/50 ML IVPB 20 MG/50 ML MG IVPB SCH ×2 (09:33→21:28)
[2021-04-19] MEDS: CEFTRIAXONE 1 GM in DEXTROSE 5%-WATER - 50 ML IVPB SCH (09:33)
[2021-04-19 18:21] LABS: BLOOD UREA NITROGEN 17.1 mg/dL (7-18); CALCIUM 8.1 mg/dL (8.5-10.1)
[2021-04-19 18:22] LABS: MAGNESIUM 1.7 mg/dL (1.8-2.4)
[2021-04-19 18:25] LABS: CREATININE 1.3 mg/dL (0.55-1.3)
[2021-04-19] MEDS: ACETAMINOPHEN 1000 MG/100 ML VIAL (NON FORMULARY) IVPB PRN (20:31)
[2021-04-19] MEDS: MELATONIN 5 MG TABLETS PO PRN (20:32)
[2021-04-19] MEDS: LIDOCAINE PATCH REMOVAL MC SCH (21:57)
[2021-04-20] MEDS: HEPARIN NA (PORCINE) 5,000 UNITS/ML 1ML VIAL SQ SCH ×3 (05:50→21:11)
[2021-04-20] MEDS: INSULIN SLIDING SCALE (NOVOLOG) 1 VIAL SQ SCH ×4 (06:02→21:23)
[2021-04-20 07:20] LABS: EOS % 2.1 % (0-4.5); HEMATOCRIT 30.8 % (35.4-49); HEMOGLOBIN 10.4 GM/dL (11.7-16.9); LYMPH % 16.2 % (8-40); MCH 30.1 pg (25.7-33.7); MCHC 33.9 g/dl (32.0-35.9); MEAN CELL VOLUME 88.9 fl (80-96); MEAN PLT VOLUME 8.9 fl (7.5-11.1); MONO % 9.5 % (3.8-10.2); NEUT % 71.2 % (42.8-82.8); PLATELET COUNT 460 10^3/uL (134-434); RBC 3.46 M/mm3 (4.00-5.60); RDW 14.4 % (11.9-15.9); WHITE BLOOD COUNT 12.3 K/mm3 (4.0-10.0)
[2021-04-20 07:46] LABS: CALCIUM 7.6 mg/dL (8.5-10.1)
[2021-04-20 07:47] LABS: BLOOD UREA NITROGEN 13.4 mg/dL (7-18); MAGNESIUM 1.9 mg/dL (1.8-2.4)
[2021-04-20 07:50] LABS: CREATININE 1.3 mg/dL (0.55-1.3); PHOSPHOROUS 2.8 mg/dL (2.5-4.9)
[2021-04-20] MEDS ORDERED: DEXTROSE 5%-WATER - 50 ML IVPB ONE (13:09)
[2021-04-20] MEDS ORDERED: cefTRIAXone SODIUM 1 GM VIAL ONE (13:09)
[2021-04-20] MEDS: METHYL SALICYLATE/MENTHOL OINT 30 GM TUBE TP SCH (13:34)
[2021-04-20] MEDS: AMIODARONE HCL 200 MG TABLET PO SCH ×2 (13:41→21:13)
[2021-04-20] MEDS: amLODIPine BESYLATE 5 MG TABLET (FP) PO SCH (13:43)
[2021-04-20] MEDS: LIDOCAINE 5% TOPICAL PATCH TP SCH (13:43)
[2021-04-20] MEDS: CEFTRIAXONE 1 GM in DEXTROSE 5%-WATER - 50 ML IVPB SCH (16:18)
[2021-04-20] MEDS ORDERED: INSULIN (NOVOLOG) ASPART 100 UNITS/ML 10ML VIAL ONE (16:33)
[2021-04-20] MEDS: FAMOTIDINE 20 MG/50 ML IVPB 20 MG/50 ML MG IVPB SCH ×2 (16:49→21:12)
[2021-04-20 18:06] LABS: CREATININE 1.1 mg/dL (0.55-1.3)
[2021-04-20] MEDS: MELATONIN 5 MG TABLETS PO PRN (20:41)
[2021-04-20] MEDS: ACETAMINOPHEN 1000 MG/100 ML VIAL (NON FORMULARY) IVPB PRN (20:42)
[2021-04-20] MEDS: LIDOCAINE PATCH REMOVAL MC SCH (21:25)
[2021-04-21] MEDS: ACETAMINOPHEN 1000 MG/100 ML VIAL (NON FORMULARY) IVPB PRN (05:21)
[2021-04-21] MEDS: HEPARIN NA (PORCINE) 5,000 UNITS/ML 1ML VIAL SQ SCH ×3 (05:22→21:54)
[2021-04-21] MEDS: INSULIN SLIDING SCALE (NOVOLOG) 1 VIAL SQ SCH ×4 (07:05→21:54)
[2021-04-21 07:15] LABS: HEMATOCRIT 29.6 % (35.4-49); HEMOGLOBIN 10.2 GM/dL (11.7-16.9); MCHC 34.6 g/dl (32.0-35.9); MEAN CELL VOLUME 89.8 fl (80-96); MEAN PLT VOLUME 9.4 fl (7.5-11.1); PLATELET COUNT 477 10^3/uL (134-434)
[2021-04-21 07:35] LABS: CALCIUM 8.2 mg/dL (8.5-10.1)
[2021-04-21 07:39] LABS: CREATININE 1.2 mg/dL (0.55-1.3)
[2021-04-21] MEDS ORDERED: cefTRIAXone SODIUM 1 GM VIAL ONE (10:18)
[2021-04-21] MEDS ORDERED: DEXTROSE 5%-WATER - 50 ML IVPB ONE (10:18)
[2021-04-21] MEDS: AMIODARONE HCL 200 MG TABLET PO SCH ×2 (10:26→21:57)
[2021-04-21] MEDS: FAMOTIDINE 20 MG/50 ML IVPB 20 MG/50 ML MG IVPB SCH ×2 (10:26→23:25)
[2021-04-21] MEDS: amLODIPine BESYLATE 5 MG TABLET (FP) PO SCH (10:26)
[2021-04-21] MEDS: LIDOCAINE 5% TOPICAL PATCH TP SCH (10:27)
[2021-04-21] MEDS: CEFTRIAXONE 1 GM in DEXTROSE 5%-WATER - 50 ML IVPB SCH (10:27)
[2021-04-21] MEDS: METHYL SALICYLATE/MENTHOL OINT 30 GM TUBE TP SCH (10:27)
[2021-04-21] MEDS: ACETAMINOPHEN 325 MG TABLET (FP) PO PRN ×2 (16:43→22:22)
[2021-04-21] MEDS: LIDOCAINE PATCH REMOVAL MC SCH (21:56)
[2021-04-21] MEDS: MELATONIN 5 MG TABLETS PO PRN (21:56)
[2021-04-21] MEDS: FAMOTIDINE 20 MG TABLET PO SCH (22:55)
[2021-04-22] MEDS: HEPARIN NA (PORCINE) 5,000 UNITS/ML 1ML VIAL SQ SCH ×2 (06:42→13:59)
[2021-04-22] MEDS: INSULIN SLIDING SCALE (NOVOLOG) 1 VIAL SQ SCH ×2 (06:49→11:14)
[2021-04-22] MEDS ORDERED: INSULIN (NOVOLOG) ASPART 100 UNITS/ML 10ML VIAL ONE (06:59)
[2021-04-22 07:24] LABS: HEMATOCRIT 32.9 % (35.4-49); MCHC 33.4 g/dl (32.0-35.9); MEAN CELL VOLUME 89.9 fl (80-96); MEAN PLT VOLUME 9.4 fl (7.5-11.1); PLATELET COUNT 512 10^3/uL (134-434); RBC 3.66 M/mm3 (4.00-5.60); RDW 14.9 % (11.9-15.9); WHITE BLOOD COUNT 11.3 K/mm3 (4.0-10.0)
[2021-04-22 08:36] LABS: CALCIUM 8.8 mg/dL (8.5-10.1)
[2021-04-22 08:38] VITALS: BP 127/81; PULSE 93; TEMP 98.8
[2021-04-22] MEDS: ACETAMINOPHEN 325 MG TABLET (FP) PO PRN (08:39)
[2021-04-22 08:40] LABS: BLOOD UREA NITROGEN 12.8 mg/dL (7-18); CREATININE 1.2 mg/dL (0.55-1.3)
[2021-04-22] MEDS ORDERED: PT OWN MED DRAWER 7, Y5N ONE (09:27)
[2021-04-22] MEDS: amLODIPine BESYLATE 5 MG TABLET (FP) PO SCH (09:32)
[2021-04-22] MEDS: METHYL SALICYLATE/MENTHOL OINT 30 GM TUBE TP SCH (09:32)
[2021-04-22] MEDS: AMIODARONE HCL 200 MG TABLET PO SCH (09:33)
[2021-04-22] MEDS: FAMOTIDINE 20 MG TABLET PO SCH (09:33)
[2021-04-22] MEDS: LIDOCAINE 5% TOPICAL PATCH TP SCH (09:35)
== END 2021-04-22 15:27 | disposition home health service (06) | DRG 854 ==
LOC: JER 06:19 → JERBED 06:49 → JICU 21:44 → J4W 04-10 14:43 → J7W 04-17 14:24
PROVIDERS: ADMIT Internal Medicine
PROC: 0TBB3ZX Excision of Bladder, Percutaneous Approach, Diagnostic (ICD-10-PCS; 2021-04-10)
PROC: 0T5B8ZZ Destruction of Bladder, Via Natural or Artificial Opening Endoscopic (ICD-10-PCS; 2021-04-10)
PROC: BT00ZZZ Plain Radiography of Bladder (ICD-10-PCS; 2021-04-10)
PROC: 0TJB8ZZ Inspection of Bladder, Via Natural or Artificial Opening Endoscopic (ICD-10-PCS; principal; 2021-04-10 12:00)
PROC: 0DBN0ZZ Excision of Sigmoid Colon, Open Approach (ICD-10-PCS; 2021-04-13)
PROC: 0D1N0Z4 Bypass Sigmoid Colon to Cutaneous, Open Approach (ICD-10-PCS; 2021-04-13)
DX: A41.89 Other specified sepsis (principal); I48.92 Unspecified atrial flutter; E87.1 Hypo-osmolality and hyponatremia; N17.9 Acute kidney failure, unspecified; E87.2 Acidosis; N32.1 Vesicointestinal fistula; N13.6 Pyonephrosis; K57.20 Diverticulitis of large intestine with perforation and abscess without bleeding; B96.20 Unspecified Escherichia coli [E. coli] as the cause of diseases classified elsewhere; E11.9 Type 2 diabetes mellitus without complications; E66.9 Obesity, unspecified; Z68.39 Body mass index [BMI] 39.0-39.9, adult; N32.89 Other specified disorders of bladder; R50.9 Fever, unspecified; D72.829 Elevated white blood cell count, unspecified; R31.0 Gross hematuria; R00.0 Tachycardia, unspecified; R94.5 Abnormal results of liver function studies; R39.89 Other symptoms and signs involving the genitourinary system; K57.30 Diverticulosis of large intestine without perforation or abscess without bleeding; G47.33 Obstructive sleep apnea (adult) (pediatric); R94.31 Abnormal electrocardiogram [ECG] [EKG]
CPT/HCPCS: 36415; 51600; 71045-TC-FY; 74177-TC; 74178-TC; 74430-TC-FY; 76705-TC; 76775-TC; 80048; 80053; 80061; 80307; 81003; 82272; 82378; 82550; 82565; 82570; 82803; 82962; 83036; 83540; 83550; 83605; 83735; 83930; 83935; 84100; 84300; 84443; 84484; 85025; 85027; 85610; 85730; 86140; 86706; 86708; 86803; 86850; 86900; 86901; 87040; 87086; 87186; 87340; 87517; 87902; 88305-TC; 88307-TC; 93005; 93010; 93306-TC; 94760; 97116-GP; 97162-GP; 99285-25; C9803; J0131; J1644; Q9967; U0003; U0005

== ENCOUNTER 2023-05-18 04:03 | Inpatient (IN) | payer OTHER ==
[2023-05-18] MEDS ORDERED: FAMOTIDINE 20 MG/50 ML IVPB 20 MG/50 ML MG IVPB ONE ×2 (04:42→04:55)
[2023-05-18] MEDS ORDERED: ONDANSETRON 4 MG/2 ML VIAL IVPUSH ONE (04:42)
[2023-05-18] MEDS ORDERED: MAG HYDROX/AL HYDROX/SIMETH 30 ML UNIT-DOSE CUP PO ONE (04:42)
[2023-05-18] MEDS ORDERED: ACETAMINOPHEN 1000 MG/100 ML BAG IVPB ONE (04:43)
[2023-05-18] MEDS ORDERED: ACETAMINOPHEN INJECTION 100 ML IVPB ONE (04:54)
[2023-05-18] MEDS ORDERED: MAG HYDROX/AL HYDROX/SIMETH 30 ML UNIT-DOSE CUP ONE (04:55)
[2023-05-18] MEDS ORDERED: ONDANSETRON 4 MG/2 ML VIAL ONE (04:55)
[2023-05-18 05:05] LABS: PH,URINE 5.5 (5.0-8.0); URINE APPEARANCE CLEAR; URINE BILIRUBIN NEGATIVE (NEGATIVE); URINE COLOR YELLOW; URINE GLUCOSE (UA) 3+ (NEGATIVE); URINE KETONE 1+ (NEGATIVE); URINE LEUK ESTERASE NEGATIVE (NEGATIVE); URINE NITRITE NEGATIVE (NEGATIVE); URINE PROTEIN NEGATIVE (NEGATIVE); URINE UROBILINOGEN 0.2 mg/dL (0.2-1.0)
[2023-05-18 05:14] LABS: INR 0.91 (0.83-1.09); PROTHROMBIN TIME (PATIENT) 10.6 SEC (9.7-13.0)
[2023-05-18 05:16] LABS: ACTIVATED PTT 29.8 SECONDS (25.2-36.5)
[2023-05-18 05:29] LABS: BASO % 1.1 % (0-2.0); EOS % 1.6 % (0-4.5); HEMATOCRIT 48.1 % (35.4-49); HEMOGLOBIN 15.9 GM/dL (11.7-16.9); LYMPH % 23.9 % (8-40); MCH 30.4 pg (25.7-33.7); MEAN CELL VOLUME 92.2 fl (80-96); MEAN PLT VOLUME 9.9 fl (7.5-11.1); MONO % 5.8 % (3.8-10.2); NEUT % 67.6 % (42.8-82.8); PLATELET COUNT 244 10^3/uL (134-434); RBC 5.22 M/mm3 (4.00-5.60); RDW 13.4 % (11.9-15.9); WHITE BLOOD COUNT 11.8 K/mm3 (4.0-10.0)
[2023-05-18 06:13] LABS: CHLORIDE 98 mmol/L (98-107); POTASSIUM 4.2 mmol/L (3.5-5.1); SODIUM 133 mmol/L (136-145)
[2023-05-18 06:16] LABS: ALBUMIN 3.6 g/dl (3.4-5.0); ANION GAP 9 mmol/L (4-13); BLOOD UREA NITROGEN 15.3 mg/dL (7-18); CALCIUM 8.4 mg/dL (8.5-10.1); CO2 25 mmol/L (21-32); LIPASE 153 U/L (73-393)
[2023-05-18 06:19] LABS: CREATININE 1.2 mg/dL (0.55-1.3); SGOT/AST 23 U/L (15-37); SGPT/ALT 48 U/L (13-61)
[2023-05-18 06:21] LABS: BILIRUBIN,TOTAL 0.6 mg/dL (0.2-1); TOT PROT 6.9 g/dl (6.4-8.2)
[2023-05-18 06:22] LABS: ALK PHOS 112 U/L (45-117)
[2023-05-18 06:26] LABS: GLUCOSE,RANDOM 503 mg/dL (74-106)
[2023-05-18] MEDS ORDERED: SODIUM CHLORIDE 0.9% 500 ML INFUS.BAG IV ONE (06:29)
[2023-05-18] MEDS ORDERED: SODIUM CHLORIDE 500 ML IV STA (08:36)
[2023-05-18] MEDS ORDERED: INSULIN REGULAR HUMAN 100 UNITS/ML *VIAL SQ ONE (08:36)
[2023-05-18] MEDS ORDERED: INSULIN (LEVEMIR) 100 UNITS/ML UNITS SQ ONE (11:13)
[2023-05-18] MEDS: INSULIN (NOVOLOG) ASPART 100 UNITS/ML 10ML VIAL SQ SCH ×2 (11:43→17:09)
[2023-05-18 13:11] LABS: CHOLESTEROL 227 mg/dL (50-200)
[2023-05-18 13:12] LABS: LDL CHOLESTEROL (ONLY SJRH) 108 mg/dL (5-100)
[2023-05-18 13:14] LABS: HDL CHOLESTEROL 38 mg/dL (40-60)
[2023-05-18] MEDS: INSULIN SLIDING SCALE (NOVOLOG) 1 VIAL SQ SCH ×2 (17:08→22:12)
[2023-05-18] MEDS: FLUTICASONE PROP 0.05% 16 GM NASAL SPRAY NS SCH (21:40)
[2023-05-18] MEDS ORDERED: ATORVASTATIN CA 40 MG TABLET (FP) PO SCH (22:00)
[2023-05-18] MEDS ORDERED: ATORVASTATIN CA 40 MG TABLET (FP) ONE (22:14)
[2023-05-19] MEDS: INSULIN (NOVOLOG) ASPART 100 UNITS/ML 10ML VIAL SQ SCH ×2 (07:14→11:12)
[2023-05-19] MEDS: INSULIN SLIDING SCALE (NOVOLOG) 1 VIAL SQ SCH ×3 (07:15→17:18)
[2023-05-19 08:20] LABS: BASO % 1.2 % (0-2.0); EOS % 2.7 % (0-4.5); HEMATOCRIT 47.8 % (35.4-49); HEMOGLOBIN 16.3 GM/dL (11.7-16.9); LYMPH % 22.9 % (8-40); MCH 30.9 pg (25.7-33.7); MCHC 34.2 g/dl (32.0-35.9); MEAN CELL VOLUME 90.5 fl (80-96); MONO % 5.9 % (3.8-10.2); NEUT % 67.3 % (42.8-82.8); PLATELET COUNT 251 10^3/uL (134-434); RBC 5.29 M/mm3 (4.00-5.60); RDW 13.3 % (11.9-15.9); WHITE BLOOD COUNT 11.3 K/mm3 (4.0-10.0)
[2023-05-19 08:22] LABS: POTASSIUM 4.2 mmol/L (3.5-5.1)
[2023-05-19 08:33] LABS: ALBUMIN 3.4 g/dl (3.4-5.0); BLOOD UREA NITROGEN 8.5 mg/dL (7-18); MAGNESIUM 1.8 mg/dL (1.8-2.4)
[2023-05-19 08:36] LABS: CREATININE 0.8 mg/dL (0.55-1.3)
[2023-05-19 08:37] LABS: BILIRUBIN,TOTAL 1.1 mg/dL (0.2-1)
[2023-05-19 08:40] LABS: TOT PROT 6.4 g/dl (6.4-8.2)
[2023-05-19] MEDS ORDERED: PANTOPRAZOLE 40 MG TABLET PO ONE (09:10)
[2023-05-19] MEDS ORDERED: ACETAMINOPHEN INJECTION 100 ML IVPB ONE (09:50)
[2023-05-19] MEDS ORDERED: ENOXAPARIN NA (PORCINE) 40 MG/0.4 ML DISP.SYRIN SQ SCH (10:00)
[2023-05-19] MEDS ORDERED: PANTOPRAZOLE 40 MG TABLET PO SCH (10:00)
[2023-05-19] MEDS: FLUTICASONE PROP 0.05% 16 GM NASAL SPRAY NS SCH (10:10)
[2023-05-19 15:03] VITALS: RESP 18
[2023-05-19 16:34] VITALS: BMI 29.9
[2023-05-19] MEDS ORDERED: FLUCONAZOLE 400 MG/NS 200 ML IVPB ONE ×2 (17:00→18:45)
[2023-05-19] MEDS ORDERED: INSULIN (NOVOLOG) ASPART 100 UNITS/ML 10ML VIAL ONE (17:17)
[2023-05-19 17:50] LABS: ALBUMIN 3.8 g/dl (3.4-5.0)
[2023-05-19 17:52] LABS: BILIRUBIN,DIRECT 0.2 mg/dL (0.0-0.2)
[2023-05-19 17:54] LABS: BILIRUBIN,TOTAL 0.9 mg/dL (0.2-1)
[2023-05-19 18:36] VITALS: BP 132/93; PULSE 71; TEMP 97.8
[2023-05-19 18:58] LABS: HIV INTERPRETATION NEGATIVE (NEGATIVE)
[2023-05-20] MEDS ORDERED: glipiZIDE-XL 5 MG TAB.ER.24 PO SCH (07:00)
== END 2023-05-19 21:13 | disposition home or self-care (01) | DRG 370 ==
LOC: JER 04:03 → JERBED 10:14 → J4W 05-19 14:57
PROVIDERS: ADMIT Internal Medicine; ATTEND Internal Medicine
PROC: 0DB68ZX Excision of Stomach, Via Natural or Artificial Opening Endoscopic, Diagnostic (ICD-10-PCS; 2023-05-19)
PROC: 0DB58ZX Excision of Esophagus, Via Natural or Artificial Opening Endoscopic, Diagnostic (ICD-10-PCS; principal; 2023-05-19 12:45)
DX: B37.81 Candidal esophagitis (principal); E11.65 Type 2 diabetes mellitus with hyperglycemia; E78.5 Hyperlipidemia, unspecified; E78.1 Pure hyperglyceridemia; K43.9 Ventral hernia without obstruction or gangrene; R01.1 Cardiac murmur, unspecified; R13.19 Other dysphagia; K57.90 Diverticulosis of intestine, part unspecified, without perforation or abscess without bleeding; R10.13 Epigastric pain; R13.10 Dysphagia, unspecified; K29.60 Other gastritis without bleeding; K29.80 Duodenitis without bleeding
CPT/HCPCS: 0241U-QW; 36415; 71260-TC; 74177-TC; 80048; 80053; 80061; 80076; 81003; 82962; 83036; 83605; 83690; 83735; 84100; 84484; 85025; 85610; 85730; 86850; 86900; 86901; 87086; 87389; 87491; 87591; 87661; 88104; 88305-TC; 93005; 93010; 99285-25; Q9967

== ENCOUNTER 2024-07-26 04:47 | Day surgery (SDC) | payer OTHER ==
[2024-07-20 13:58] VITALS: BMI 31.3
[2024-07-26 12:33] VITALS: BP 118/73; PULSE 73; RESP 20; TEMP 97.8
== END 2024-07-26 11:06 | disposition home or self-care (01) ==
LOC: JASU-ENDO 04:47
PROVIDERS: ATTEND Internal Medicine Gastroenterology
PROC: 0DBL8ZX Excision of Transverse Colon, Via Natural or Artificial Opening Endoscopic, Diagnostic (ICD-10-PCS; 2024-07-26)
PROC: 0DBN8ZX Excision of Sigmoid Colon, Via Natural or Artificial Opening Endoscopic, Diagnostic (ICD-10-PCS; 2024-07-26)
PROC: 0DBP8ZX Excision of Rectum, Via Natural or Artificial Opening Endoscopic, Diagnostic (ICD-10-PCS; 2024-07-26)
PROC: 0DBQ8ZX Excision of Anus, Via Natural or Artificial Opening Endoscopic, Diagnostic (ICD-10-PCS; 2024-07-26)
PROC: 0DBL8ZX Excision of Transverse Colon, Via Natural or Artificial Opening Endoscopic, Diagnostic (ICD-10-PCS; 2024-07-26)
PROC: 0DBP8ZX Excision of Rectum, Via Natural or Artificial Opening Endoscopic, Diagnostic (ICD-10-PCS; 2024-07-26)
PROC: 0DBM8ZX Excision of Descending Colon, Via Natural or Artificial Opening Endoscopic, Diagnostic (ICD-10-PCS; principal; 2024-07-26 08:45)
DX: Z12.11 Encounter for screening for malignant neoplasm of colon (principal); D12.3 Benign neoplasm of transverse colon; D12.4 Benign neoplasm of descending colon; D12.7 Benign neoplasm of rectosigmoid junction; D12.8 Benign neoplasm of rectum; A63.0 Anogenital (venereal) warts
CPT/HCPCS: 82962; 88305-TC; 88341-TC; 88342-TC